=== PATIENT | male | born 1985 | race Caucasian/White ===

== ENCOUNTER 2016-12-13 13:28 | Emergency (ER) | payer OTHER ==
[~2016-12-13] VITALS: Ht 172.7 cm; Wt 90.7 kg
[2016-12-13 16:36] VITALS: BP 128/69
== END 2016-12-13 16:30 | disposition home or self-care (01) ==
LOC: ED 13:28
DX: M25.512 Pain in left shoulder (principal); Z79.899 Other long term (current) drug therapy
CPT/HCPCS: J1100; J1885

== ENCOUNTER 2019-03-11 11:46 | Emergency (ER) | payer MEDICAID ==
[~2019-03-11] VITALS: Ht 172.7 cm; Wt 103.4 kg
[2019-03-11 11:55] VITALS: BP 127/74; Ht 172.7 cm; Wt 103.4 kg
== END 2019-03-11 12:50 | disposition home or self-care (01) ==
LOC: ED 11:46
DX: S05.02XA Injury of conjunctiva and corneal abrasion without foreign body, left eye, initial encounter (principal); X58.XXXA Exposure to other specified factors, initial encounter; Y93.89 Activity, other specified; Y92.89 Other specified places as the place of occurrence of the external cause; Y99.8 Other external cause status

== ENCOUNTER 2019-06-14 22:06 | Emergency (ER) | payer MEDICAID ==
[~2019-06-14] VITALS: Ht 172.7 cm; Wt 105.7 kg
[2019-06-14 22:12] VITALS: Ht 172.7 cm; Wt 105.7 kg
[2019-06-15 00:04] VITALS: BP 103/75
== END 2019-06-15 00:04 | disposition home or self-care (01) ==
LOC: ED 22:06
DX: S13.4XXA Sprain of ligaments of cervical spine, initial encounter (principal); M54.5 Low back pain; M54.6 Pain in thoracic spine; R51 Headache; V48.6XXA Car passenger injured in noncollision transport accident in traffic accident, initial encounter; Y93.89 Activity, other specified; Y92.488 Other paved roadways as the place of occurrence of the external cause; Y99.8 Other external cause status

== ENCOUNTER 2020-05-30 23:58 | Emergency (ER) | payer MEDICAID ==
[~2020-05-30] VITALS: Ht 172.7 cm; Wt 108.2 kg
[2020-05-31 00:16] VITALS: BP 129/84; Ht 172.7 cm; Wt 108.2 kg
== END 2020-05-31 00:28 | disposition left against medical advice (07) ==
LOC: ED 23:58
DX: Z53.21 Procedure and treatment not carried out due to patient leaving prior to being seen by health care provider (principal)